=== PATIENT | female | born 1970 | race Caucasian/White ===

== ENCOUNTER 2023-11-19 06:57 | Emergency (ER) | payer BC ==
[2023-11-19 07:18] VITALS: O2SAT 99
--- NOTE | 2023-11-19 07:38 | ED Physician Documentation ---
PD HPI SKIN - Stated complaint Stated Complaint: ABD TINGLING/BURNING - Chief complaint Chief Complaint: Wound - History obtained from History obtained from: Patient - History of Present Illness Timing - onset: How many days ago (2) Timing - duration: Days (2) Timing - details: Gradual onset, Still present Location: Abdomen (left lower abd with strip of discomfort from periumbilical around leftward in strip/band shape.) Quality / character: Itchy, Burning. No: Discolored, Vesicular Associated symptoms: No: Fever, Myalgias, N/V/D Similar symptoms before: Diagnosis (she has had shingles in the past and current symptoms feeling like shingles. Can treat empirically.) PD PAST MEDICAL HISTORY - Past Medical History Past Medical History: No - Past Surgical History Past Surgical History: No - Present Medications Home Medications: Ambulatory Orders Medication Instructions Recorded Confirmed HYDROcod/ACETAM 5/325 [[place] 5/325] 1 ea PO Q6H PRN #12 tablet 11/19/23 Lidocaine Patch 5% [Lidoderm Patch] 1 patch TOP DAILY PRN #10 patch 11/19/23 Penciclovir 1 applic TP BID #10 gm 11/19/23 Valacyclovir HCl [Valtrex] 1,000 mg PO TID #20 tablet 11/19/23 dexAMETHasone [Decadron] 4 mg PO DAILY #5 tablet 11/19/23 - Allergies Allergies/Adverse Reactions: Allergies Allergy/AdvReac Type Severity Reaction Status Date / Time No Known Drug Allergies Allergy Verified 11/19/23 07:09 - Social History Does the pt smoke?: No Smoking Status: Never smoker PD ED PE NORMAL - Vitals Vital signs reviewed: Yes - General General: Alert and oriented X 3, No acute distress, Well developed/nourished - Derm Derm: Normal color, Warm and dry - Extremities Extremities: Other (left lower abd at level of umbilicus with skin sensitivity to light touch. No blistersa/rash per se as yet. ) - Neuro Neuro: No motor deficit, No sensory deficit Results - Vitals Vitals: Vital Signs - 24 hr 11/19/23 11/19/23 07:07 08:29 Temperature 36 C L 36.4 C L Heart Rate 69 70 Respiratory 18 16 Rate Blood Pressure 143/71 H 140/80 H O2 Saturation 99 99 Oxygen O2 Source Room air PD Medical Decision Making - ED course Complexity details: considered differential (patient states symptoms feel like early shingles outbrack. Can treat empirically. ), d/w patient Departure - Departure Disposition: 01 Home, Self Care Clinical Impression: Shingles outbreak Qualifiers: Herpes zoster complications: without complications Qualified Code(s): B02.9 - Zoster without complications Condition: Stable Record reviewed to determine appropriate education?: Yes Instructions: ED Shingles Prescriptions: dexAMETHasone [Decadron] 4 mg PO DAILY #5 tablet Lidocaine Patch 5% [Lidoderm Patch] 1 patch TOP DAILY PRN #10 patch PRN Reason: pain HYDROcod/ACETAM 5/325 [[place]off 5/325] 1 ea PO Q6H PRN #12 tablet PRN Reason: Pain Penciclovir 1 applic TP BID #10 gm Valacyclovir HCl [Valtrex] 1,000 mg PO TID #20 tablet Comments: We tend to treat shingles outbreak with a multipronged approach of the antiviral medication to decrease the viral load and outbreak (it looks to be valacyclovir and famciclovir are comparable in reference just now). There is benefit over the acyclovir and also easier use since the valacyclovir is only 3 times a day compared to 5 times a day for acyclovir. Steroids are used to decrease inflammation to the nerve and therefore less pain and less duration of pain. Lower dose for short-term can be effective. Treating topically may be useful in the main outbreak area such as with the lidocaine patch. For pain itself, on combination of acetaminophen 500 to 650 mg 4 times daily in combination with an anti-inflammatory such as ibuprofen or naproxen with food 2- 3 times daily can be effective. Add hydrocodone every 4-6 hours if needed for worse pain. I did write for the pen psych [place] topical. It only comes in small 5 g tubes and the [facility] pricing looks expensive so you are insurance may or may not cover it. I did write for it in case. I sent your prescriptions to [facility] pharmacy. Forms: PCP List Discharge Date/Time: 11/19/23 08:29
[2023-11-19] MEDS: dexAMETHasone 4 MG TABLET PO STA (08:12)
[2023-11-19] MEDS: valACYclovir 500 MG TABLET PO STA (08:12)
[2023-11-19] MEDS: ACETAMINOPHEN 500 MG TABLET PO STA (08:12)
[2023-11-19 08:36] VITALS: BP 140/80
== END 2023-11-19 08:29 | disposition home or self-care (01) ==
LOC: ED 06:57
DX: B02.9 Zoster without complications (principal)
CPT/HCPCS: 99283; 99284; A9270; J8540